=== PATIENT | female | born 1940 | race Caucasian/White ===

== ENCOUNTER 2017-08-05 03:48 | Inpatient (IN) | payer MEDICAID ==
[~2017-08-05] VITALS: Ht 160 cm; Wt 59.0 kg
[2017-08-05] VITALS (7 sets, daily range): BP systolic 146–169; BP diastolic 66–81; Ht 160 cm; Wt 59.0 kg
[2017-08-05 05:00] LABS: BASOPHIL % 0.6 % (0-2); PLATELET COUNT 261 x10^3mcL (130-400); RED CELL DISTRIBUTION WIDTH 13.3 % (11.5-14.5)
[2017-08-05 05:18] LABS: CALCIUM 9.2 mg/dL (8.5-10.1); CARBON DIOXIDE 23.3 mmol/L (21-32); CHLORIDE SERUM 102 mmol/L (98-107); CREATININE SERUM 0.6 mg/dL (0.6-1.0); GLUCOSE SERUM 145 mg/dL (74-106); POTASSIUM SERUM 4.2 mmol/L (3.5-5.1); SODIUM SERUM 134 mmol/L (136-145)
[2017-08-05 05:23] LABS: ALKALINE PHOSPHATASE 67 U/L (46-116); ALT/SGPT 23 U/L (14-59); AST/SGOT 18 U/L (15-37)
[2017-08-05 05:26] LABS: ALBUMIN 3.3 g/dL (3.4-5.0)
[2017-08-05] MEDS ORDERED: AMLODIPINE BESYL5 M2 (05:53)
[2017-08-05] MEDS ORDERED: ASPIR LOW81 MG PO (05:54)
[2017-08-05] MEDS ORDERED: GLIPIZIDE5 M2 (06:14)
[2017-08-05 06:35] LABS: T3 TOTAL 1.2 ng/mL
[2017-08-05 07:00] LABS: CHOLESTEROL/HDL RATIO 3.5; MAGNESIUM 2.1 mg/dL (1.8-2.4); PHOSPHOROUS 2.8 mg/dL (2.5-4.9)
[2017-08-05 07:15] LABS: FREE T4 1.2 ng/dL (0.76-1.46); FREE THYROXINE INDEX 2.7 ug/dL (1.4-4.5); T4(THYROXINE) 8.3 ug/dL (4.7-13.3)
[2017-08-06 05:59] VITALS: BP 159/75
[2017-08-06 06:19] LABS: BASOPHIL % 0.5 % (0-2); PLATELET COUNT 255 x10^3mcL (130-400); RED CELL DISTRIBUTION WIDTH 13.4 % (11.5-14.5)
[2017-08-06 06:48] LABS: CALCIUM 8.7 mg/dL (8.5-10.1); CARBON DIOXIDE 23.5 mmol/L (21-32); CHLORIDE SERUM 106 mmol/L (98-107); CREATININE SERUM 0.7 mg/dL (0.6-1.0); GLUCOSE SERUM 117 mg/dL (74-106); POTASSIUM SERUM 4.2 mmol/L (3.5-5.1); SODIUM SERUM 138 mmol/L (136-145)
[2017-08-06 09:03] VITALS: BP 143/84
[2017-08-06 11:48] VITALS: BP 156/70
[2017-08-06 12:00] LABS: microscopic required? NO
[2017-08-06 12:43] LABS: urine erythrocyte NEGATIVE (NEGATIVE)
[2017-08-06 13:07] LABS: AMPHETAMINE QUAL UR NONE DETECTED (NEG <=1000)
[2017-08-06 15:46] VITALS: BP 144/63
[2017-08-06 20:38] VITALS: BP 134/59
[2017-08-07 07:03] LABS: BASOPHIL % 0.5 % (0-2); PLATELET COUNT 259 x10^3mcL (130-400); RED CELL DISTRIBUTION WIDTH 13.6 % (11.5-14.5)
[2017-08-07 09:29] LABS: CALCIUM 8.7 mg/dL (8.5-10.1); CARBON DIOXIDE 24.1 mmol/L (21-32); CHLORIDE SERUM 103 mmol/L (98-107); CREATININE SERUM 0.8 mg/dL (0.6-1.0); GLUCOSE SERUM 101 mg/dL (74-106); POTASSIUM SERUM 4.1 mmol/L (3.5-5.1); SODIUM SERUM 137 mmol/L (136-145)
[2017-08-07 09:49] VITALS: BP 137/58
[2017-08-07] MEDS ORDERED: CIPRO500 MG PO (11:45)
[2017-08-07] MEDS ORDERED: LOVASTATIN20 MG PO (11:46)
[2017-08-07 12:46] VITALS: BP 137/58
[2017-08-07 14:06] VITALS: BP 140/60
== END 2017-08-07 16:00 | disposition home or self-care (01) | DRG 756 ==
LOC: ED 03:48 → DU 05:40
PROVIDERS: Emergency Medicine; Family Medicine; Family Medicine Sports Medicine
DX: F41.9 Anxiety disorder, unspecified (principal); J69.0 Pneumonitis due to inhalation of food and vomit; N17.0 Acute kidney failure with tubular necrosis; E11.65 Type 2 diabetes mellitus with hyperglycemia; E86.0 Dehydration; G90.9 Disorder of the autonomic nervous system, unspecified; F32.1 Major depressive disorder, single episode, moderate; E44.1 Mild protein-calorie malnutrition; E87.1 Hypo-osmolality and hyponatremia; K21.9 Gastro-esophageal reflux disease without esophagitis; I10 Essential (primary) hypertension; D64.9 Anemia, unspecified; Z68.22 Body mass index [BMI] 22.0-22.9, adult; Z88.0 Allergy status to penicillin; Z79.82 Long term (current) use of aspirin; Z79.84 Long term (current) use of oral hypoglycemic drugs; Z63.4 Disappearance and death of family member
CPT/HCPCS: 82962; 83880; 84439; 85378; 94150; G0480; J1200; J1956; J2405; J3490; J7030; J8597; Q0092; Q9967

== ENCOUNTER 2017-08-29 06:07 | Emergency (ER) | payer MEDICAID ==
[~2017-08-29] VITALS: Ht 154.9 cm; Wt 57.3 kg
[~2017-08-29 06:07] MED LIST: AMLODIPINE BESYL5 M2; ASPIR LOW81 MG PO; CIPRO500 MG PO; GLIPIZIDE5 M2; LOVASTATIN20 MG PO
[2017-08-29 07:15] LABS: BASOPHIL % 0.2 % (0-2); PLATELET COUNT 268 x10^3mcL (130-400)
[2017-08-29 07:51] LABS: CALCIUM 9.4 mg/dL (8.5-10.1); CARBON DIOXIDE 24.7 mmol/L (21-32); CHLORIDE SERUM 104 mmol/L (98-107); CREATININE SERUM 0.6 mg/dL (0.6-1.0); GLUCOSE SERUM 161 mg/dL (74-106); POTASSIUM SERUM 3.8 mmol/L (3.5-5.1); SODIUM SERUM 138 mmol/L (136-145)
[2017-08-29 07:55] LABS: ALKALINE PHOSPHATASE 58 U/L (46-116); ALT/SGPT 21 U/L (14-59); AST/SGOT 23 U/L (15-37); BILIRUBIN TOTAL 0.3 mg/dL (0.20-1.00); LIPASE 110 IU/L (73-393); TOTAL PROTEIN, SERUM 6.7 g/dL (6.4-8.2)
[2017-08-29 08:04] LABS: ALBUMIN 3.2 g/dL (3.4-5.0)
[2017-08-29 08:56] VITALS: BP 131/77
== END 2017-08-29 08:57 | disposition home or self-care (01) ==
LOC: ED 06:07
PROVIDERS: Emergency Medicine
DX: K29.70 Gastritis, unspecified, without bleeding (principal); R73.9 Hyperglycemia, unspecified; I10 Essential (primary) hypertension
CPT/HCPCS: J7030; Q0162

== ENCOUNTER 2018-01-02 08:33 | Emergency (ER) | payer MEDICAID ==
[~2018-01-02] VITALS: Ht 162.6 cm; Wt 57.6 kg
[2018-01-02 08:39] VITALS: Ht 162.6 cm; Wt 57.6 kg
[2018-01-02 09:14] LABS: BASOPHIL % 0.6 % (0-2); PLATELET COUNT 248 x10^3mcL (130-400); RED CELL DISTRIBUTION WIDTH 13.8 % (11.5-14.5)
[2018-01-02 09:22] LABS: CALCIUM 8.7 mg/dL (8.5-10.1); CARBON DIOXIDE 27.2 mmol/L (21-32); CHLORIDE SERUM 107 mmol/L (98-107); CREATININE SERUM 0.6 mg/dL (0.6-1.0); GLUCOSE SERUM 159 mg/dL (74-106); POTASSIUM SERUM 4.1 mmol/L (3.5-5.1); SODIUM SERUM 139 mmol/L (136-145)
[2018-01-02 09:27] LABS: ALBUMIN 3.6 g/dL (3.4-5.0); ALKALINE PHOSPHATASE 88 U/L (46-116); ALT/SGPT 17 U/L (14-59); AST/SGOT 18 U/L (15-37); BILIRUBIN TOTAL 0.3 mg/dL (0.20-1.00); TOTAL PROTEIN, SERUM 7.6 g/dL (6.4-8.2)
[2018-01-02 09:47] LABS: UA SPECIFIC GRAVITY 1.015 (1.005-1.035); microscopic required? YES; urine erythrocyte NEGATIVE (NEGATIVE)
[2018-01-02 10:49] VITALS: BP 171/85
== END 2018-01-02 11:28 | disposition home or self-care (01) ==
LOC: ED 08:33
PROVIDERS: Emergency Medicine
DX: N39.0 Urinary tract infection, site not specified (principal); I10 Essential (primary) hypertension; E11.9 Type 2 diabetes mellitus without complications; Z88.0 Allergy status to penicillin
CPT/HCPCS: J7030

== ENCOUNTER 2018-02-11 09:58 | Inpatient (IN) | payer MEDICAID ==
[~2018-02-11] VITALS: Ht 160 cm; Wt 57.4 kg
[2018-02-11 12:48] LABS: BASOPHIL % 0.2 % (0-2); PLATELET COUNT 248 x10^3mcL (130-400); RED CELL DISTRIBUTION WIDTH 13.9 % (11.5-14.5)
[2018-02-11 13:05] LABS: UA SPECIFIC GRAVITY 1.015 (1.005-1.035); microscopic required? YES; urine erythrocyte NEGATIVE (NEGATIVE)
[2018-02-11 13:54] LABS: ALBUMIN 3.8 g/dL (3.4-5.0); ALKALINE PHOSPHATASE 72 U/L (46-116); ALT/SGPT 24 U/L (14-59); AST/SGOT 16 U/L (15-37); BILIRUBIN TOTAL 0.6 mg/dL (0.20-1.00); CARBON DIOXIDE 24.7 mmol/L (21-32); CREATININE SERUM 0.6 mg/dL (0.6-1.0); FREE T4 1.33 ng/dL (0.76-1.46); GLUCOSE SERUM 154 mg/dL (74-106); LIPASE 109 IU/L (73-393); TOTAL PROTEIN, SERUM 7.8 g/dL (6.4-8.2)
[2018-02-11 13:55] LABS: CALCIUM 9.3 mg/dL (8.5-10.1); CHLORIDE SERUM 98 mmol/L (98-107); POTASSIUM SERUM 4.3 mmol/L (3.5-5.1); SODIUM SERUM 135 mmol/L (136-145)
[2018-02-11 16:14] LABS: CHOLESTEROL/HDL RATIO 3.7; MAGNESIUM 1.9 mg/dL (1.8-2.4); PHOSPHOROUS 3.7 mg/dL (2.5-4.9)
[2018-02-11 16:24] LABS: FREE T4 1.31 ng/dL (0.76-1.46); FREE THYROXINE INDEX 2.9 ug/dL (1.4-4.5); T4(THYROXINE) 9.4 ug/dL (4.7-13.3)
[2018-02-11] MEDS ORDERED: MECLIZINE HYD12.5 MG (16:25)
[2018-02-11] MEDS ORDERED: LOT5 (16:25)
[2018-02-11 16:30] LABS: T3 TOTAL 0.84 ng/mL
[2018-02-11 16:43] VITALS: BP 160/84
[2018-02-12 01:34] VITALS: BP 131/55
[2018-02-12 05:16] VITALS: BP 144/66
[2018-02-12 06:09] LABS: CALCIUM 8.4 mg/dL (8.5-10.1); CARBON DIOXIDE 25.1 mmol/L (21-32); CHLORIDE SERUM 103 mmol/L (98-107); CREATININE SERUM 0.6 mg/dL (0.6-1.0); GLUCOSE SERUM 102 mg/dL (74-106); MAGNESIUM 1.8 mg/dL (1.8-2.4); PHOSPHOROUS 3.5 mg/dL (2.5-4.9); POTASSIUM SERUM 4.1 mmol/L (3.5-5.1); SODIUM SERUM 136 mmol/L (136-145)
[2018-02-12 06:49] LABS: BASOPHIL % 0.5 % (0-2); PLATELET COUNT 215 x10^3mcL (130-400); RED CELL DISTRIBUTION WIDTH 13.8 % (11.5-14.5)
[2018-02-12 08:21] VITALS: BP 131/54
[2018-02-12] MEDS ORDERED: ECO81 PO (12:11)
[2018-02-12] MEDS ORDERED: LOTENSIN40 MG PO (12:12)
[2018-02-12 13:35] VITALS: BP 131/54
== END 2018-02-12 15:13 | disposition home or self-care (01) | DRG 48 ==
LOC: ED 09:58 → MU 15:08
PROVIDERS: Emergency Medicine; Family Medicine
DX: G90.8 Other disorders of autonomic nervous system (principal); N17.0 Acute kidney failure with tubular necrosis; I67.4 Hypertensive encephalopathy; D68.69 Other thrombophilia; E11.65 Type 2 diabetes mellitus with hyperglycemia; R80.9 Proteinuria, unspecified; Z79.82 Long term (current) use of aspirin; Z79.84 Long term (current) use of oral hypoglycemic drugs
CPT/HCPCS: 82962; 83880; 84439; J7030; Q0092; Q0162

== ENCOUNTER 2018-05-20 09:48 | Emergency (ER) | payer MEDICAID ==
[~2018-05-20] VITALS: Ht 160 cm; Wt 56.4 kg
[~2018-05-20 09:48] MED LIST changes: +ECO81 PO; +LOT5; +LOTENSIN40 MG PO; +MECLIZINE HYD12.5 MG
[2018-05-20 10:43] LABS: BASOPHIL % 0.6 % (0-2); PLATELET COUNT 262 x10^3mcL (130-400); RED CELL DISTRIBUTION WIDTH 13.3 % (11.5-14.5)
[2018-05-20 10:48] LABS: CALCIUM 8.9 mg/dL (8.5-10.1); CARBON DIOXIDE 26.8 mmol/L (21-32); CHLORIDE SERUM 104 mmol/L (98-107); CREATININE SERUM 0.8 mg/dL (0.6-1.0); GLUCOSE SERUM 91 mg/dL (74-106); POTASSIUM SERUM 3.7 mmol/L (3.5-5.1); SODIUM SERUM 138 mmol/L (136-145)
[2018-05-20 10:53] LABS: ALKALINE PHOSPHATASE 73 U/L (46-116); ALT/SGPT 17 U/L (14-59); AST/SGOT 21 U/L (15-37); BILIRUBIN TOTAL 0.32 mg/dL (0.20-1.00); LIPASE 131 IU/L (73-393); TOTAL PROTEIN, SERUM 7.2 g/dL (6.4-8.2)
[2018-05-20 10:57] LABS: ALBUMIN 3.3 g/dL (3.4-5.0)
[2018-05-20 12:20] VITALS: BP 158/76
== END 2018-05-20 12:20 | disposition home or self-care (01) ==
LOC: ED 09:48
PROVIDERS: Emergency Medicine
DX: R07.89 Other chest pain (principal); K21.9 Gastro-esophageal reflux disease without esophagitis; I10 Essential (primary) hypertension; E11.9 Type 2 diabetes mellitus without complications; Z88.0 Allergy status to penicillin
CPT/HCPCS: 36415; Q0092

== ENCOUNTER 2018-05-24 04:10 | Inpatient (IN) | payer MEDICAID ==
[~2018-05-24] VITALS: Ht 160 cm; Wt 61.7 kg
[2018-05-24 04:13] VITALS: Ht 160 cm; Wt 61.7 kg
[2018-05-24 05:26] LABS: CALCIUM 8.9 mg/dL (8.5-10.1); CARBON DIOXIDE 27.5 mmol/L (21-32); CHLORIDE SERUM 98 mmol/L (98-107); CREATININE SERUM 0.7 mg/dL (0.6-1.0); GLUCOSE SERUM 140 mg/dL (74-106); POTASSIUM SERUM 3.9 mmol/L (3.5-5.1); SODIUM SERUM 127 mmol/L (136-145)
[2018-05-24 05:27] LABS: BASOPHIL % 0.4 % (0-2); PLATELET COUNT 276 x10^3mcL (130-400); RED CELL DISTRIBUTION WIDTH 13.4 % (11.5-14.5)
[2018-05-24 05:31] LABS: ALBUMIN 3.4 g/dL (3.4-5.0); ALKALINE PHOSPHATASE 78 U/L (46-116); ALT/SGPT 19 U/L (14-59); AST/SGOT 13 U/L (15-37); BILIRUBIN TOTAL 0.29 mg/dL (0.20-1.00); LIPASE 187 IU/L (73-393); TOTAL PROTEIN, SERUM 7.3 g/dL (6.4-8.2)
[2018-05-24] MEDS ORDERED: AMLODIPINE BESY10 M2 PO (05:59)
[2018-05-24] MEDS ORDERED: PEPCID20 MG PO (05:59)
[2018-05-24] MEDS ORDERED: GOOD SENSE ASPI81 M3 PO (06:00)
[2018-05-24] MEDS ORDERED: GLUCOTROL10 MG PO (06:00)
[2018-05-24 06:36] VITALS: BP 162/67
[2018-05-24 07:29] VITALS: BP 162/67
[2018-05-24 07:32] LABS: CHOLESTEROL/HDL RATIO 3.5; PHOSPHOROUS 3.1 mg/dL (2.5-4.9)
[2018-05-24 07:40] LABS: FREE T4 1.09 ng/dL (0.76-1.46); FREE THYROXINE INDEX 3.1 ug/dL (1.4-4.5)
[2018-05-24 07:41] LABS: T3 TOTAL 1.14 ng/mL
[2018-05-24 08:51] VITALS: BP 130/55
[2018-05-24 11:21] LABS: microscopic required? NO
[2018-05-24 11:27] LABS: urine erythrocyte NEGATIVE (NEGATIVE)
[2018-05-24 11:40] LABS: AMPHETAMINE QUAL UR NONE DETECTED (See below)
[2018-05-24 13:06] VITALS: BP 120/69
[2018-05-24 17:19] VITALS: BP 147/68
[2018-05-24 21:50] VITALS: BP 136/60
[2018-05-25 05:29] VITALS: BP 135/70
[2018-05-25 06:09] LABS: BASOPHIL % 0.3 % (0-2); PLATELET COUNT 261 x10^3mcL (130-400); RED CELL DISTRIBUTION WIDTH 13.2 % (11.5-14.5)
[2018-05-25 06:19] LABS: CALCIUM 8.6 mg/dL (8.5-10.1); CARBON DIOXIDE 25.8 mmol/L (21-32); CHLORIDE SERUM 106 mmol/L (98-107); CREATININE SERUM 0.7 mg/dL (0.6-1.0); GLUCOSE SERUM 105 mg/dL (74-106); MAGNESIUM 1.8 mg/dL (1.8-2.4); PHOSPHOROUS 3.6 mg/dL (2.5-4.9); SODIUM SERUM 140 mmol/L (136-145)
[2018-05-25 09:27] VITALS: BP 113/57
[2018-05-25 12:48] VITALS: BP 137/57
[2018-05-25 13:05] VITALS: BP 137/57
== END 2018-05-25 15:10 | disposition home or self-care (01) | DRG 243 ==
LOC: ED 04:10 → DU 05:53
PROVIDERS: Emergency Medicine; General Practice
DX: K21.9 Gastro-esophageal reflux disease without esophagitis (principal); E11.65 Type 2 diabetes mellitus with hyperglycemia; D64.9 Anemia, unspecified; R09.1 Pleurisy; E87.1 Hypo-osmolality and hyponatremia; J06.9 Acute upper respiratory infection, unspecified; I10 Essential (primary) hypertension; E78.5 Hyperlipidemia, unspecified; Z68.21 Body mass index [BMI] 21.0-21.9, adult; Z79.84 Long term (current) use of oral hypoglycemic drugs; Z79.82 Long term (current) use of aspirin
CPT/HCPCS: 83880; 84439; C9113; J2405; J7030; Q0092

== ENCOUNTER 2018-09-30 04:34 | Emergency (ER) | payer MEDICAID ==
[~2018-09-30] VITALS: Ht 160 cm; Wt 57.6 kg
[~2018-09-30 04:34] MED LIST changes: +AMLODIPINE BESY10 M2 PO; +GLUCOTROL10 MG PO; +GOOD SENSE ASPI81 M3 PO; +PEPCID20 MG PO
[2018-09-30 04:42] VITALS: Ht 160 cm; Wt 57.6 kg
[2018-09-30 05:51] LABS: microscopic required? NO
[2018-09-30 06:10] LABS: urine erythrocyte NEGATIVE (NEGATIVE)
[2018-09-30 06:12] LABS: BASOPHIL % 0.5 % (0-2); PLATELET COUNT 237 x10^3mcL (130-400); RED CELL DISTRIBUTION WIDTH 14.3 % (11.5-14.5)
[2018-09-30 06:21] LABS: CALCIUM 8.9 mg/dL (8.5-10.1); CHLORIDE SERUM 104 mmol/L (98-107); CREATININE SERUM 0.6 mg/dL (0.6-1.0); GLUCOSE SERUM 94 mg/dL (74-106); POTASSIUM SERUM 3.7 mmol/L (3.5-5.1); SODIUM SERUM 141 mmol/L (136-145)
[2018-09-30 06:25] LABS: ALBUMIN 3.8 g/dL (3.4-5.0); ALKALINE PHOSPHATASE 79 U/L (46-116); ALT/SGPT 27 U/L (14-59); AST/SGOT 24 U/L (15-37); LIPASE 94 IU/L (73-393); TOTAL PROTEIN, SERUM 7.7 g/dL (6.4-8.2)
[2018-09-30 07:32] VITALS: BP 183/87
== END 2018-09-30 07:32 | disposition home or self-care (01) ==
LOC: ED 04:34
PROVIDERS: Emergency Medicine
DX: E86.0 Dehydration (principal); R10.84 Generalized abdominal pain; R19.7 Diarrhea, unspecified; I10 Essential (primary) hypertension; E11.9 Type 2 diabetes mellitus without complications; Z88.0 Allergy status to penicillin
CPT/HCPCS: J1885; J2405

== ENCOUNTER 2019-01-11 09:45 | Emergency (ER) | payer MEDICAID ==
[~2019-01-11] VITALS: Ht 154.9 cm; Wt 58.1 kg
[2019-01-11 09:54] VITALS: BP 151/66; Ht 154.9 cm; Wt 58.1 kg
== END 2019-01-11 12:59 | disposition left against medical advice (07) ==
LOC: ED 09:45
DX: Z53.21 Procedure and treatment not carried out due to patient leaving prior to being seen by health care provider (principal)

== ENCOUNTER 2019-01-13 19:04 | Emergency (ER) | payer MEDICAID ==
[~2019-01-13] VITALS: Ht 160 cm; Wt 59.5 kg
[2019-01-13 19:17] VITALS: Ht 160 cm; Wt 59.5 kg
[2019-01-13 21:56] LABS: BASOPHIL % 0.5 % (0-2); PLATELET COUNT 235 x10^3mcL (130-400); RED CELL DISTRIBUTION WIDTH 13.9 % (11.5-14.5)
[2019-01-13 22:01] LABS: CALCIUM 9.1 mg/dL (8.5-10.1); CARBON DIOXIDE 25.8 mmol/L (21-32); CHLORIDE SERUM 104 mmol/L (98-107); CREATININE SERUM 0.7 mg/dL (0.6-1.0); GLUCOSE SERUM 85 mg/dL (74-106); SODIUM SERUM 139 mmol/L (136-145)
[2019-01-13 22:05] LABS: ALBUMIN 3.6 g/dL (3.4-5.0); ALKALINE PHOSPHATASE 77 U/L (46-116); ALT/SGPT 19 U/L (14-59); AST/SGOT 13 U/L (15-37); BILIRUBIN TOTAL 0.21 mg/dL (0.20-1.00); CHOLESTEROL 174 mg/dL (<200); HDL CHOLESTEROL 48 mg/dL (40-60); PHOSPHOROUS 3.4 mg/dL (2.5-4.9); TOTAL PROTEIN, SERUM 7.3 g/dL (6.4-8.2); URIC ACID 4.1 mg/dL (2.6-6.0)
[2019-01-13 23:12] VITALS: BP 109/50
== END 2019-01-13 23:12 | disposition home or self-care (01) ==
LOC: ED 19:04
PROVIDERS: Emergency Medicine
DX: G44.209 Tension-type headache, unspecified, not intractable (principal); I16.0 Hypertensive urgency; I10 Essential (primary) hypertension; E11.9 Type 2 diabetes mellitus without complications; Z88.0 Allergy status to penicillin
CPT/HCPCS: 36415; J0780; J1885; Q0092

== ENCOUNTER 2019-02-27 07:04 | Emergency (ER) | payer MEDICAID ==
[~2019-02-27] VITALS: Ht 157.5 cm; Wt 59.4 kg
[2019-02-27 07:09] VITALS: Ht 157.5 cm; Wt 59.4 kg
[2019-02-27 08:08] LABS: CALCIUM 8.4 mg/dL (8.5-10.1); CARBON DIOXIDE 24.1 mmol/L (21-32); CHLORIDE SERUM 107 mmol/L (98-107); CREATININE SERUM 0.8 mg/dL (0.6-1.0); GLUCOSE SERUM 118 mg/dL (74-106); SODIUM SERUM 140 mmol/L (136-145)
[2019-02-27 08:13] LABS: ALKALINE PHOSPHATASE 86 U/L (46-116); ALT/SGPT 18 U/L (14-59); AST/SGOT 14 U/L (15-37); BILIRUBIN TOTAL 0.16 mg/dL (0.20-1.00); TOTAL PROTEIN, SERUM 7.1 g/dL (6.4-8.2)
[2019-02-27 08:16] LABS: ALBUMIN 3.3 g/dL (3.4-5.0)
[2019-02-27 08:18] LABS: BASOPHIL % 0.5 % (0-2); PLATELET COUNT 234 x10^3mcL (130-400); RED CELL DISTRIBUTION WIDTH 13.5 % (11.5-14.5)
[2019-02-27 10:53] VITALS: BP 152/55
== END 2019-02-27 10:53 | disposition home or self-care (01) ==
LOC: ED 07:04
PROVIDERS: Emergency Medicine
DX: R07.89 Other chest pain (principal); R51 Headache; M54.2 Cervicalgia; R06.02 Shortness of breath; I10 Essential (primary) hypertension; E11.9 Type 2 diabetes mellitus without complications; M25.511 Pain in right shoulder; Z88.0 Allergy status to penicillin
CPT/HCPCS: 83880; J1885; J2060; Q0092

== ENCOUNTER 2019-03-18 11:33 | Emergency (ER) | payer MEDICAID ==
[~2019-03-18] VITALS: Ht 160 cm; Wt 59.4 kg
[2019-03-18 11:48] VITALS: Ht 160 cm; Wt 59.4 kg
[2019-03-18 12:41] LABS: BASOPHIL % 0.6 % (0-2); PLATELET COUNT 264 x10^3mcL (130-400); RED CELL DISTRIBUTION WIDTH 13.7 % (11.5-14.5)
[2019-03-18 12:45] LABS: CARBON DIOXIDE 27.9 mmol/L (21-32); CHLORIDE SERUM 105 mmol/L (98-107); CREATININE SERUM 0.8 mg/dL (0.6-1.0); GLUCOSE SERUM 142 mg/dL (74-106); POTASSIUM SERUM 4.2 mmol/L (3.5-5.1); SODIUM SERUM 140 mmol/L (136-145)
[2019-03-18 12:50] LABS: ALBUMIN 3.5 g/dL (3.4-5.0); ALKALINE PHOSPHATASE 78 U/L (46-116); ALT/SGPT 23 U/L (14-59); AST/SGOT 19 U/L (15-37); BILIRUBIN TOTAL 0.3 mg/dL (0.20-1.00); TOTAL PROTEIN, SERUM 7.5 g/dL (6.4-8.2)
[2019-03-18 14:49] LABS: microscopic required? YES; urine erythrocyte NEGATIVE (NEGATIVE)
[2019-03-18 16:07] VITALS: BP 178/78
== END 2019-03-18 16:07 | disposition home or self-care (01) ==
LOC: ED 11:33
PROVIDERS: Emergency Medicine
DX: G89.29 Other chronic pain (principal); H92.01 Otalgia, right ear; H81.391 Other peripheral vertigo, right ear; I10 Essential (primary) hypertension; E11.9 Type 2 diabetes mellitus without complications; Z88.0 Allergy status to penicillin
CPT/HCPCS: 36415; J8597

== ENCOUNTER 2019-08-01 17:24 | Emergency (ER) | payer MEDICAID ==
[~2019-08-01] VITALS: Ht 165.1 cm; Wt 61.2 kg
[2019-08-01 17:30] VITALS: Ht 165.1 cm; Wt 61.2 kg
[2019-08-01 18:47] LABS: BASOPHIL % 0.5 % (0-2); PLATELET COUNT 254 x10^3mcL (130-400); RED CELL DISTRIBUTION WIDTH 13.7 % (11.5-14.5)
[2019-08-01 19:02] LABS: CALCIUM 9.5 mg/dL (8.5-10.1); CARBON DIOXIDE 27.6 mmol/L (21-32); CHLORIDE SERUM 107 mmol/L (98-107); CREATININE SERUM 0.7 mg/dL (0.6-1.0); GLUCOSE SERUM 100 mg/dL (74-106); POTASSIUM SERUM 3.9 mmol/L (3.5-5.1); SODIUM SERUM 142 mmol/L (136-145)
[2019-08-01 19:06] LABS: ALBUMIN 3.5 g/dL (3.4-5.0); ALKALINE PHOSPHATASE 78 U/L (46-116); ALT/SGPT 26 U/L (14-59); AST/SGOT 18 U/L (15-37); BILIRUBIN TOTAL 0.2 mg/dL (0.20-1.00); TOTAL PROTEIN, SERUM 7.6 g/dL (6.4-8.2)
[2019-08-01 20:06] VITALS: BP 163/75
== END 2019-08-01 20:06 | disposition home or self-care (01) ==
LOC: ED 17:24
PROVIDERS: Emergency Medicine
DX: R42 Dizziness and giddiness (principal); R20.2 Paresthesia of skin; I10 Essential (primary) hypertension
CPT/HCPCS: J2405; J7030; J8597; Q0092

== ENCOUNTER 2020-07-23 04:45 | Emergency (ER) | payer MEDICAID ==
[~2020-07-23] VITALS: Ht 162.6 cm; Wt 70.3 kg
[2020-07-23 04:51] VITALS: Ht 162.6 cm; Wt 70.3 kg
[2020-07-23 09:02] VITALS: BP 161/80
== END 2020-07-23 09:02 | disposition home or self-care (01) ==
LOC: ED 04:45
DX: R51.9 Headache, unspecified (principal); M50.322 Other cervical disc degeneration at C5-C6 level; M50.323 Other cervical disc degeneration at C6-C7 level; I10 Essential (primary) hypertension; Z88.0 Allergy status to penicillin

== ENCOUNTER 2020-08-12 07:27 | Emergency (ER) | payer MEDICAID ==
[~2020-08-12] VITALS: Ht 154.9 cm; Wt 59.0 kg
[2020-08-12 07:43] VITALS: Ht 154.9 cm; Wt 59.0 kg
[2020-08-12 14:24] VITALS: BP 172/68
[2020-08-12 23:39] LABS: CALCIUM 9.9 mg/dL (8.5-10.1); CARBON DIOXIDE 23.4 mmol/L (21-32); CHLORIDE SERUM 103 mmol/L (98-107); CREATININE SERUM 0.8 mg/dL (0.6-1.0); GLUCOSE SERUM 176 mg/dL (74-106); POTASSIUM SERUM 4.2 mmol/L (3.5-5.1); SODIUM SERUM 135 mmol/L (136-145)
[2020-08-12 23:46] LABS: ALBUMIN 3.8 g/dL (3.4-5.0); ALKALINE PHOSPHATASE 71 U/L (46-116); ALT/SGPT 21 U/L (14-59); AST/SGOT 18 U/L (15-37); BILIRUBIN TOTAL 0.3 mg/dL (0.20-1.00); LACTIC DEHYDROGENASE (LDH) 258 U/L (100-190); LIPASE 142 IU/L (73-393); TOTAL PROTEIN, SERUM 7.6 g/dL (6.4-8.2)
[2020-08-12 23:47] LABS: C REACTIVE PROTEIN 0.2 mg/dL (<=0.9)
[2020-08-13 13:15] LABS: PLATELET COUNT 263 x10^3mcL (130-400); RED CELL DISTRIBUTION WIDTH 13.6 % (11.5-14.5)
[2020-08-13 13:16] LABS: BASOPHIL % 1.1 % (0-2)
== END 2020-08-12 14:24 | disposition home or self-care (01) ==
LOC: ED 07:27
PROVIDERS: Emergency Medicine
DX: R10.13 Epigastric pain (principal); R51.9 Headache, unspecified; I10 Essential (primary) hypertension; Z88.0 Allergy status to penicillin; Z20.828 Contact with and (suspected) exposure to other viral communicable diseases
CPT/HCPCS: 83880; 85378; 87804; J1885; J2405; U0003